=== PATIENT | male | born 1960 | race African-American/Black ===

== ENCOUNTER 2019-02-25 18:47 | Emergency (ER) | payer MEDICAID ==
[2019-02-25] MEDS ORDERED: LIDOCAINE 1%/EPINEPHRINE INJ 20 ML VIAL INJ ONE (19:17)
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
[2019-02-25 21:08] VITALS: BP 108/63
== END 2019-02-25 21:08 | disposition home or self-care (01) ==
LOC: ER 18:47
DX: S51.011A Laceration without foreign body of right elbow, initial encounter (principal); Y00.XXXA Assault by blunt object, initial encounter; Y93.01 Activity, walking, marching and hiking; Y92.410 Unspecified street and highway as the place of occurrence of the external cause; F17.200 Nicotine dependence, unspecified, uncomplicated; I10 Essential (primary) hypertension; Z23 Encounter for immunization
CPT/HCPCS: 99283; 73080; 12031; J3490

== ENCOUNTER 2019-02-26 00:46 | Emergency (ER) | payer MEDICAID ==
[2019-02-26 03:17] VITALS: BP 150/83
== END 2019-02-26 03:25 | disposition left against medical advice (07) ==
LOC: ER 00:46
DX: Z53.21 Procedure and treatment not carried out due to patient leaving prior to being seen by health care provider (principal)

== ENCOUNTER 2019-03-12 21:14 | Emergency (ER) | payer MEDICAID ==
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
--- NOTE | 2019-03-13 00:49 | RADIOLOGY REPORT (SQ) ---
EXAM DESCRIPTION: XR RIGHT ELBOW 3 VIEWS COMPLETED DATE/TME: 03/13/2019 00:00 CLINICAL HISTORY: 58 years, Male, injury 2 weeks ago continued pain COMPARISON: X-ray right elbow 02/25/2019 NUMBER OF VIEWS: TECHNIQUE: LIMITATIONS: None. FINDINGS: The prior study showed a possible hairline fracture involving the radial head. The current study shows some questionable bony sclerosis, in the vicinity of the possible hairline fracture, seen on the prior study. This could indicate fracture healing. There is apparent elevation of the anterior elbow fat pad, compatible with a joint effusion. This is a new finding, as compared with the prior study. Mineralization of bone appears normal. IMPRESSION: Possible healing fracture of the radial head. Elbow joint effusion. copyright 2010 [employer]- All Rights Reserved
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
[2019-03-13 04:56] VITALS: BP 135/82
== END 2019-03-13 06:20 | disposition home or self-care (01) ==
LOC: ER 21:14
DX: S51.011D Laceration without foreign body of right elbow, subsequent encounter (principal); S52.124D Nondisplaced fracture of head of right radius, subsequent encounter for closed fracture with routine healing; W22.8XXD Striking against or struck by other objects, subsequent encounter
CPT/HCPCS: 99282

== ENCOUNTER → 2019-03-16 | Outpatient (CLI) | payer MEDICAID ==
--- NOTE | 2019-03-16 12:21 | RADIOLOGY REPORT (SQ) ---
EXAM DESCRIPTION: CT RT UPPER EXTREMITY WITHOUT COMPLETED DATE/TIME: 03/16/2019 9:31 am REASON FOR STUDY: S52.124A NONDISP FX OF HEAD OF RIGHT RADIUS, INIT FOR CLOS FX S52.124A NONDISP FX OF HEAD OF RIGHT RADIUS, INIT FOR CLOS F COMPARISON: Right elbow films 03/13/2019, 02/25/2019 TECHNIQUE: Axial imaging performed through the right elbow with reformatted oblique coronal and obli que sagittal imaging windowed for bone and soft tissues. All CT scanners at this facility use dose modulation, iterative reconstruction, and/or weight based d osing when appropriate to reduce radiation dose to as low as reasonably achievable (ALARA). [facility]: Dose Right [facility]: CareDose [facility]: Dose Right [facility]: Teradose 4D [facility]: NOTIK RADIATION DOSE: CT Rad equipment meets quality standard of care and radiation dose reduction techniq ues were employed. CTDIvol: 4.6 mGy. DLP: 102 mGy-cm. mGy. LIMITATIONS: None. FINDINGS: A healing nondisplaced fracture of the right distal humerus medial epicondyle at the attac hment of the common flexor tendon is present. This is best shown on the sagittal reconstruction seri es 301, image 13/50, and coronal reconstruction 300 image 13/50. This is not visible on the oblique view from right elbow plain films 03/13/2019. Question healing nondisplaced hairline fracture through the coronoid process of the ulna, best shown on sagittal series 301, images 16 and 17/50. The radial head is grossly intact. No healing fracture is identified. There is a small persistent elbow joint effusion with elevation of the anterior fat pad. 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 No soft tissue gas or radiopaque foreign body. Overall normal bone density for age without lytic or blastic lesions IMPRESSION: Healing fracture, right distal humerus medial epicondyle TECHNICAL DOCUMENTATION: JOB ID: [id number] Quality ID # [id number]: Final reports with documentation of one or more dose reduction techniques (e.g., Au tomated exposure control, adjustment of the mA and/or kV according to patient size, use of iterative reconstruction technique) 2010 [employer]- All Rights Reserved Reading location - IP/workstation name: [email or web address]
== END ==
LOC: RAD 08:21
PROVIDERS: ATTEND Family Medicine
DX: S52.124A Nondisplaced fracture of head of right radius, initial encounter for closed fracture (principal); X58.XXXA Exposure to other specified factors, initial encounter; Y93.9 Activity, unspecified; Y92.9 Unspecified place or not applicable

== ENCOUNTER 2019-06-16 13:58 | Emergency (ER) | payer MEDICAID ==
--- NOTE | 2019-06-16 14:15 | ER Document Report ---
ED Medical Screen (RME) - General Stated Complaint: COUGH,CONGESTION,BODY ACHES Time Seen by Provider: 06/16/19 14:12 Primary Care Provider: ROSALIA STINSON DO [Primary Care Provider] - Follow up as needed Mode of Arrival: Ambulatory Information source: Patient Notes: 58-year-old male presents to ED for complaint of cough congestion shortness of breath and difficulty breathing. He states he has had a clot cough for 2 weeks and then developed this moist cough since yesterday. He is coughing up sputum there is yellow. Patient is alert oriented Patient states he does smoke about half pack a day. He does have moist cough. I have greeted and performed a rapid initial assessment of this patient. A comprehensive ED assessment and evaluation of the patient, analysis of test results and completion of medical decision making process will be conducted by an additional ED providers. TRAVEL OUTSIDE OF THE [place] IN LAST 30 DAYS: No - Related Data Allergies/Adverse Reactions: No Known Allergies Allergy (Verified 06/16/19 14:10) Past Medical History - Past Medical History Cardiac Medical History: Reports: Hx Hypertension - meds x 2 months Denies: Hx Atrial Fibrillation, Hx Congestive Heart Failure, Hx Coronary Artery Disease, Hx DVT, Hx Heart Attack, Hx Hypercholesterolemia, Hx Peripheral Vascular Disease, Hx Pulmonary Embolism, Hx Heart Murmur Neurological Medical History: Denies: Hx Cerebrovascular Accident, Hx Migraine, Hx Seizures, Hx Parkinson's Disease Renal/ Medical History: Denies: Hx Peritoneal Dialysis Musculoskeltal Medical History: Reports Hx Arthritis, Denies Hx Fibromyalgia, Denies Hx Multiple Sclerosis, Denies Hx Muscular Dystrophy Psychiatric Medical History: Reports: Hx Depression - no meds x 1 year (pt stopped), Hx Schizophrenia - no meds x 1 year (pt stopped) Denies: Hx Bipolar Disorder, Hx Dementia, Hx Post Traumatic Stress Disorder Traumatic Medical History: Denies: Hx Fractures Past Surgical History: Reports: Hx Orthopedic Surgery - L knee, R shoulder. Denies: Hx Appendectomy, Hx Bowel Surgery, Hx Cholecystectomy, Hx Coronary Artery Bypass Graft, Hx Gastric Bypass Surgery, Hx Herniorrhaphy, Hx Pacemaker, Hx Tonsillectomy - Immunizations Hx Diphtheria, Pertussis, Tetanus Vaccination: No Physical Exam - Vital signs Vitals: Temp Pulse Resp BP Pulse Ox 99.4 F 108 H 22 H 109/65 95 06/16/19 14:06 06/16/19 14:06 06/16/19 14:06 06/16/19 14:06 06/16/19 14:06 Course - Vital Signs Vital signs: Temp Pulse Resp BP Pulse Ox 99.4 F 108 H 22 H 109/65 95 06/16/19 14:06 06/16/19 14:06 06/16/19 14:06 06/16/19 14:06 06/16/19 14:06 Doctor's Discharge - Discharge Referrals: ROSALIA STINSON DO [Primary Care Provider] - Follow up as needed
[2019-06-16] MEDS: ALBUTEROL SULFATE 0.083% NEB 2.5 MG/3 ML AMPUL NEB SCH ×2 (14:19→14:52)
--- NOTE | 2019-06-16 14:48 | RADIOLOGY REPORT (SQ) ---
EXAM DESCRIPTION: CHEST 2 VIEWS COMPLETED DATE/TIME: 06/16/2019 2:40 pm REASON FOR STUDY: cough congestion COMPARISON: 10/16/2013. EXAM PARAMETERS: NUMBER OF VIEWS: two views TECHNIQUE: Digital Frontal and Lateral radiographic views of the chest acquired. RADIATION DOSE: NA LIMITATIONS: none FINDINGS: LUNGS AND PLEURA: No opacities, masses or pneumothorax. No pleural effusion. MEDIASTINUM AND HILAR STRUCTURES: No masses or contour abnormalities. HEART AND VASCULAR STRUCTURES: Heart normal size. No evidence for failure. BONES: No acute findings. HARDWARE: None in the chest. OTHER: No other significant finding. IMPRESSION: NO ACUTE RADIOGRAPHIC FINDING IN THE CHEST. TECHNICAL DOCUMENTATION: JOB ID: [id number] [employer]- All Rights Reserved Reading location - IP/workstation name: [email or web address]
[2019-06-16 15:06] LABS: HEMOGLOBIN 14.5 g/dL (13.5-17.0); MEAN CORPUSCULAR HEMOGLOBIN 30.7 pg (27.0-33.4); MEAN CORPUSCULAR HGB CONC 33.6 g/dL (32.0-36.0); MEAN CORPUSCULAR VOLUME 91 fl (80-97); PLATELET COUNT 285 10^3/uL (150-450); RED BLOOD COUNT 4.72 10^6/uL (4.35-5.55); RED CELL DISTRIBUTION WIDTH 14.2 % (11.5-14.0); WHITE BLOOD COUNT 20.6 10^3/uL (4.0-10.5)
[2019-06-16 15:24] LABS: ALBUMIN 4.1 g/dL (3.5-5.0); ALKALINE PHOSPHATASE 67 U/L (38-126); ANION GAP 10 (5-19); ASPARTATE AMINO TRANSFERASE 26 U/L (17-59); BILIRUBIN,TOTAL 0.7 mg/dL (0.2-1.3); BLOOD UREA NITROGEN 15 mg/dL (7-20); CALCIUM 9.7 mg/dL (8.4-10.2); CARBON DIOXIDE 25 mmol/L (22-30); CHLORIDE 104 mmol/L (98-107); GLUCOSE 118 mg/dL (75-110); TOTAL PROTEIN 7.1 g/dL (6.3-8.2)
[2019-06-16 15:29] LABS: ABSOLUTE LYMPHOCYTES# (MANUAL) 1.6 10^3/uL (0.5-4.7); ABSOLUTE MONOCYTES # (MANUAL) 1.6 10^3/uL (0.1-1.4); BAND NEUTROPHILS % (MANUAL) 3 % (3-5); BASOPHILS % (MANUAL) 0 % (0-2); EOSINOPHILS % (MANUAL) 0 % (0-6); LYMPHOCYTES % (MANUAL) 8 % (13-45); MONOCYTES % (MANUAL) 8 % (3-13); SEGMENTED NEUTROPHILS % (MAN) 81 % (42-78); SMUDGE CELLS PRESENT; TOTAL CELLS COUNTED 100
[2019-06-16 15:30] LABS: ANISOCYTOSIS SLIGHT; PLATELET COMMENT ADEQUATE
[2019-06-16] MEDS ORDERED: BENZONATATE 100 MG CAPSULE PO ONE (19:08)
[2019-06-16] MEDS ORDERED: ALBUTEROL SULFATE HFA (90 MCG/PUFF) 8 GM MDI (1 MDI/ER DISP) IH PRN (19:08)
--- NOTE | 2019-06-16 19:11 | ER Document Report ---
ED General - General Chief Complaint: Chest Congestion Stated Complaint: COUGH,CONGESTION,BODY ACHES Time Seen by Provider: 06/16/19 14:12 Primary Care Provider: FAVIAN JJ MD [Primary Care Provider] - Follow up as needed Mode of Arrival: Ambulatory Notes: Patient is a 58-year-old male who presents to the emergency department with a chief complaint of cough. Patient reports he has had a persistent dry cough for about 2 weeks. Patient reports yesterday he did produce a lot of thick yellow sputum. Patient states he has not taken any [id number] medications for the symptoms. Patient reports he does smoke a half a pack of cigarettes per day. Patient denies fever but does report chills. Patient reports a decreased appetite without nausea, vomiting or diarrhea. Patient reports a sore throat. Patient reports he has a lot of nasal congestion but does not have a runny nose. Patient reports his last bowel movement was yesterday did not show any signs of blood. TRAVEL OUTSIDE OF THE [place] IN LAST 30 DAYS: No - Related Data Allergies/Adverse Reactions: No Known Allergies Allergy (Verified 06/16/19 14:10) Past Medical History - General Information source: Patient - Social History Smoking Status: Current Every Day Smoker Chew tobacco use (# tins/day): No Frequency of alcohol use: None Drug Abuse: None Lives with: Family Family History: Reviewed & Not Pertinent Patient has suicidal ideation: No Patient has homicidal ideation: No - Past Medical History Cardiac Medical History: Reports: Hx Hypertension - meds x 2 months Denies: Hx Atrial Fibrillation, Hx Congestive Heart Failure, Hx Coronary Artery Disease, Hx DVT, Hx Heart Attack, Hx Hypercholesterolemia, Hx Peripheral Vascular Disease, Hx Pulmonary Embolism, Hx Heart Murmur Pulmonary Medical History: Reports: None EENT Medical History: Reports: None Neurological Medical History: Reports: None. Denies: Hx Cerebrovascular Accident, Hx Migraine, Hx Seizures, Hx Parkinson's Disease Endocrine Medical History: Reports: None Renal/ Medical History: Reports: None. Denies: Hx Peritoneal Dialysis Malignancy Medical History: Reports None GI Medical History: Reports: None Musculoskeletal Medical History: Reports Hx Arthritis, Denies Hx Fibromyalgia, Denies Hx Multiple Sclerosis, Denies Hx Muscular Dystrophy Skin Medical History: Reports None Psychiatric Medical History: Reports: Hx Depression - no meds x 1 year (pt stopped), Hx Schizophrenia - no meds x 1 year (pt stopped) Denies: Hx Bipolar Disorder, Hx Dementia, Hx Post Traumatic Stress Disorder Traumatic Medical History: Reports: None. Denies: Hx Fractures Infectious Medical History: Reports: None Past Surgical History: Reports: Hx Orthopedic Surgery - L knee, R shoulder. Denies: Hx Appendectomy, Hx Bowel Surgery, Hx Cholecystectomy, Hx Coronary Artery Bypass Graft, Hx Gastric Bypass Surgery, Hx Herniorrhaphy, Hx Pacemaker, Hx Tonsillectomy - Immunizations Hx Diphtheria, Pertussis, Tetanus Vaccination: No Hx Pneumococcal Vaccination: 08/29/10 Review of Systems - Review of Systems Constitutional: See HPI EENT: See HPI Cardiovascular: No symptoms reported Respiratory: See HPI Gastrointestinal: No symptoms reported Genitourinary: No symptoms reported Male Genitourinary: No symptoms reported Musculoskeletal: No symptoms reported Skin: No symptoms reported Hematologic/Lymphatic: No symptoms reported Neurological/Psychological: No symptoms reported Physical Exam - Vital signs Vitals: Temp Pulse Resp BP Pulse Ox 99.4 F 108 H 22 H 109/65 95 06/16/19 14:06 06/16/19 14:06 06/16/19 14:06 06/16/19 14:06 06/16/19 14:06 - Notes Notes: GENERAL: Well-appearing, well-nourished and in no acute distress. HEAD: Atraumatic, normocephalic. EYES: Pupils equal round and reactive to light, extraocular movements intact, sclera anicteric, conjunctiva are normal. ENT: TMs normal, nares patent, + edematous turbinates bilaterally, no rhinorrhea, oropharynx clear without exudates. Moist mucous membranes. NECK: Normal range of motion, supple without lymphadenopathy or JVD. LUNGS: Breath sounds clear to auscultation bilaterally and equal. No wheezes rales or rhonchi. Non productive continuous cough. HEART: Regular rate and rhythm without murmurs, rubs or gallops. ABDOMEN: Soft, nontender, normoactive bowel sounds. No guarding, no rebound. No masses appreciated. BACK: No cervical, thoracic, lumbar midline tenderness. No saddle anesthesia, normal distal neurovascular exam. GENITOURINARY: Deferred. EXTREMITIES: Normal range of motion, no pitting or edema. No clubbing or cyanosis. NEUROLOGICAL: Cranial nerves II through XII grossly intact. Normal speech, normal gait. PSYCH: Normal mood, normal affect. SKIN: Warm, Dry, normal turgor, no rashes or lesions noted. Course - Re-evaluation Re-evalutation: 06/16/19 Upon initial assessment the patient he had already received a breathing treatment. Patient does not have any wheezing or scattered rhonchi. Chest x- ray was negative for pneumonia. Patient potentially has a viral to bacterial bronchitis. I did discuss this case with my supervising physician Dr. Leiva who recommends a course of oral steroids, Z-Silvino, Tessalon Perles and a breathing treatment. Patient does have a leukocytosis with a white count of 20. We have drawn blood cultures. I did discuss strict return precautions with the patient and family member. Patient is in no acute distress and eating - Vital Signs Vital signs: Temp Pulse Resp BP Pulse Ox 99.4 F 81 16 108/64 95 06/16/19 19:19 06/16/19 19:19 06/16/19 19:19 06/16/19 19:19 06/16/19 19:19 - Laboratory Result Diagrams: 06/16/19 14:29 06/16/19 14:29 Laboratory results interpreted by me: 06/16/19 06/16/19 14:29 14:29 WBC 20.6 H RDW 14.2 H Seg Neuts % (Manual) 81 H Lymphocytes % (Manual) 8 L Abs Neuts (Manual) 17.3 H Abs Monocytes (Manual) 1.6 H Glucose 118 H 06/16/19 20:29 Patient does have leukocytosis of 20.6. Neutrophils 81 - Diagnostic Test Radiology reviewed: Reports reviewed Radiology results interpreted by me: 06/16/19 19:11 Laboratory 06/16/19 06/16/19 06/16/19 14:29 14:29 14:29 WBC 20.6 H RBC 4.72 Hgb 14.5 Hct 43.0 MCV 91 MCH 30.7 MCHC 33.6 RDW 14.2 H Plt Count 285 Lymph % (Auto) Not Reportable Collier % (Auto) Not Reportable Eos % (Auto) Not Reportable Baso % (Auto) Not Reportable Absolute Neuts (auto) Not Reportable Absolute Lymphs (auto) Not Reportable Absolute Monos (auto) Not Reportable Absolute Eos (auto) Not Reportable Absolute Basos (auto) Not Reportable Total Counted 100 Seg Neutrophils % Not Reportable Seg Neuts % (Manual) 81 H Band Neutrophils % 3 Lymphocytes % (Manual) 8 L Monocytes % (Manual) 8 Eosinophils % (Manual) 0 Basophils % (Manual) 0 Abs Neuts (Manual) 17.3 H Abs Lymphs (Manual) 1.6 Abs Monocytes (Manual) 1.6 H Absolute Eos (Manual) 0.0 Abs Basophils (Manual) 0.0 Smudge Cells PRESENT Platelet Comment ADEQUATE Anisocytosis SLIGHT Sodium 139.2 Potassium 4.0 Chloride 104 Carbon Dioxide 25 Anion Gap 10 BUN 15 Creatinine 1.23 Est GFR ( Amer) > 60 Est GFR (MDRD) Non-Af > 60 Glucose 118 H Calcium 9.7 Total Bilirubin 0.7 Direct Bilirubin 0.0 Neonat Total Bilirubin Not Reportable Neonat Direct Bilirubin Not Reportable Neonat Indirect Bili Not Reportable AST 26 ALT 17 Alkaline Phosphatase 67 NT-Pro-B Natriuret Pep 137 Total Protein 7.1 Albumin 4.1 Discharge - Discharge Clinical Impression: Tobacco abuse, Cough, Chills, Bronchitis Leukocytosis Qualifiers: Leukocytosis type: unspecified Qualified Code(s): D72.829 - Elevated white blood cell count, unspecified Condition: Stable Disposition: HOME, SELF-CARE Additional Instructions: BRONCHITIS: You have acute bronchitis. This disease is an infection or inflammation of the air passageways in your lungs. Symptoms usually include cough, low grade fever, shortness of breath, and wheezing. The cough usually persists for a couple of weeks. Most cases of bronchitis get better without antibiotics. We prescribe antibiotics when we believe bacteria are damaging your airways, or if there's high risk the bronchitis will worsen into pneumonia. Increase your fluid intake. A cool mist humidifier may make your lungs more comfortable. An expectorant (cough medicine that loosens phlegm) can help. If you smoke, STOP!!! Recovery from bronchitis can be somewhat slow, but you should see improvement within a day or two. Repeated episodes of bronchitis may result in lung damage -- for example, chronic bronchitis, recurrent pneumonias, or emphysema. Call the doctor if you develop increasing fever, shortness of breath, chest pain, bloody sputum, or otherwise worsen. If you have not improved at all after several days, contact the physician. BRONCHITIS WITH BRONCHOSPASM (WHEEZING): You have bronchitis with bronchospasm (wheezing). Sometimes people develop wheezing with a chest cold. This occurs either because of an underlying tendency toward asthma or because the virus itself irritates the bronchial tubes. This irritation causes cough, shortness of breath, and wheezing. Emergency treatment of bronchospasm may include adrenaline shots or bronchodilator aerosol. You may feel lightheaded and have a rapid pulse for an hour or two. Rest and get plenty of fluids. At home, we'll treat you with a bronchodilator inhaler. Corticosteroids may be required for some patients. Until you recover, avoid chemical fumes, dusts, pollens, and exercising in very cold or dry air. If you smoke, stop now! Most cases of bronchitis get better without antibiotics. We prescribe antibiotics when we believe bacteria are damaging your airways, or if there's high risk the bronchitis will worsen into pneumonia. Increase your fluid intake. A cool mist humidifier may make your lungs more comfortable. An expectorant (co ugh medicine that loosens phlegm) can help. Repeated episodes of bronchitis and bronchospasm may result in lung damage -- for example, chronic bronchitis, recurrent pneumonias, or emphysema. If you develop a fever, increased wheezing, chest pain, or severe shortness of breath, you should contact the doctor immediately. DECONGESTANT MEDICATION: A decongestant medicine has been prescribed. Often this medicine is combined in the same tablet with an antihistamine or expectorant. This type of medicine is helpful in treating a bad cold or sinus condition, as well as in treatment of the nasal congestion of hay fever. It is not of much benefit for lung infections. Decongestant medicines are related to stimulants. They can cause an increase in blood pressure and heart rate. Persons with heart disease and high blood pressure should not take decongestants without discussing this with the physician. If you develop palpitations, chest pain, headache, or tremors, stop the m edicine and consult your physician. COUGH-SUPPRESSANT & EXPECTORANT MEDICATION: You are to use a cough medication as needed for relief of symptoms. This medicine is a combination of an expectorant (to make the mucous thinner and more easily "coughed up") and a cough suppressant (to reduce the frequency of coughing). The cough-suppressant medicine is related to narcotics. You may experience mild nausea and sleepiness. Some patients who are very sensitive to narcotics may have stomach pain from this medicine. Taking the medicine with food reduces these side effects. Do not drive or work with machinery until you know how this medicine affects you. The expectorant should have no side effects. Iodine-containing expectorants (such as organidin) should not be taken by persons with active thyroid disease unless approved by your doctor. Call the doctor if you develop shortness of breath, hives, rash, itching, lightheadedness, or severe nausea and vomiting. INHALED BRONCHODILATORS: You have received a treatment of and/or prescription for an inhaled bronchodilator -- a medication which stimulates the airways in the lung to dilate. This improves the flow of air in asthma, bronchitis, and emphysema. These medicines have some similarity to adrenaline, and can cause similar side effects: shakiness, racing heart, and a sense of nervousness. These side effects decrease with time. Contact your doctor if these side effects are severe. Do not over-use the medicine. Too-frequent use of the inhaler may make it ineffective. Call your doctor if the inhaler is not controlling your symptoms at the prescribed doses. STEROID MEDICATION: You have been given an injection of or oral medicine of the cortisone/steroid class. This medication is used to control inflammation or allergy. Jeremy t is usually only given for a short period of time, until the acute process subsides. There are usually no side effects from short-term use of cortisone-like medications. Some persons feel an increased sense of well-being and are not sleepy at bedtime. Long-term use of cortisone medications is best avoided, unless required for a severe condition. If your condition does not remit, or relapses after the course of corticosteroid medication, you should consult your physician. ANTIBIOTIC THERAPY: You have been given an antibiotic prescription. It's important that you take all the medication, unless instructed otherwise by your physician. Failure to complete the entire course can result in relapse of your condition. Common side effects of antibiotics include nausea, intestinal cramping, or diarrhea. Women may develop vaginal yeast infections, and babies can get yeast (thrush) in the mouth following the use of antibiotics. Contact your physician if you develop significant side effects from this medication. Allergy to this antibiotic can result in hives, wheezing, faintness, or itching. If symptoms of allergy occur, stop the medication and call your doctor. AZITHROMYCIN: Azithromycin (Zithromax) is a broad spectrum antibiotic in the same class as erythromycin. It can treat a variety of bacterial infections, but is most frequently used for respiratory infections. Azithromycin is extremely long-lasting. It accumulates in body tissues and continues to kill bacteria for many days. In order to improve absorption, Azithromycin should be taken at least one hour before or two hours after a meal. It does not have the same strong tendency to upset the stomach as erythromycin and is usually very well tolerated. Patients who have had a rash or other true allergic reactions to erythromycin should not take this medication. Call if you develop gastrointestinal distress, severe diarrhea, rash, hives, itching, or shortness of breath. USE OF ACETAMINOPHEN (Tylenol): Acetaminophen may be taken for pain relief or fever control. It's much safer than aspirin, offering a wider range of "safe" dosages. It is safe during . Some brand names are Tylenol, Panadol, Datril, Anacin 3, Tempra, and Liquiprin. Acetaminophen can be repeated every four hours. The following are maximum recommended dosages: >89 pounds or adults 650 mg to 900 mg Acetaminophen can be repeated every four hours. Maximum dose not to exceed 4000 mg a day. SMOKING: If you smoke, you should stop smoking. The tar and chemicals in cigarette smoke are harmful. Smoking has been shown to cause: emphysema chronic bronchitis lung cancer mouth and throat cancer stomach and pancreas cancer premature aging defects In addition, smoking increases ear and lung infections in children of smokers. FOLLOW-UP CARE: If you have been referred to a physician for follow-up care, call the physicians office for an appointment as you were instructed or within the next two days. If you experience worsening or a significant change in your symptoms, notify the physician immediately or return to the Emergency Department at any time for re-evaluation. Prescriptions: Benzonatate [Tessalon Perles 100 mg Capsule] 100 mg PO Q8HP PRN #21 capsule PRN Reason: Prednisone [Deltasone 10 mg Tablet] 10 mg PO ASDIR PRN #21 tablet PRN Reason: Fluticasone Propionate [Flonase Nasal Johnson 50 Mcg/Johnson 16 gm] 1 spray NASL Q12 #1 inhaler Azithromycin [Zithromax 250 mg Tablet] 250 mg PO ASDIR #6 tablet Referrals: FAVIAN JJ MD [Primary Care Provider] - Follow up as needed
[2019-06-16 19:23] VITALS: BP 108/64
== END 2019-06-16 19:37 | disposition home or self-care (01) ==
LOC: ER 13:58
DX: J40 Bronchitis, not specified as acute or chronic (principal); R05 Cough; R68.83 Chills (without fever); D72.829 Elevated white blood cell count, unspecified; R09.89 Other specified symptoms and signs involving the circulatory and respiratory systems; M79.10 Myalgia, unspecified site; R63.0 Anorexia; J02.9 Acute pharyngitis, unspecified; R09.81 Nasal congestion; F17.200 Nicotine dependence, unspecified, uncomplicated; I10 Essential (primary) hypertension; Z79.899 Other long term (current) drug therapy
CPT/HCPCS: 94640 ×2; 99283; 36415; 87040; 85025; 80053; 83880; 71046; J3490 ×2

== ENCOUNTER 2019-08-25 18:09 | Emergency (ER) | payer MEDICAID ==
[2019-08-25] MEDS ORDERED: TETRACAINE HCL 0.5% OPH SOLN 4 ML OD ONE (18:46)
[2019-08-25] MEDS ORDERED: ERYTHROMYCIN 0.5% OPH OINT 1 GM UNIT DOSE OD ONE (19:27)
[2019-08-25] MEDS ORDERED: OXYCODONE-ACETAMINOPHEN 5-325 MG TABLET PO ONE (19:27)
--- NOTE | 2019-08-25 19:35 | ER Document Report ---
Entered by KELECHI MOONEY SCRIBE 08/25/19 1833 Acting as scribe for:MIRNA JORGE IV, MD ED Eye Complaint - General Chief Complaint: Eye Injury Stated Complaint: EYE INJURY Time Seen by Provider: 08/25/19 18:32 Primary Care Provider: FAVIAN JJ MD [Primary Care Provider] - Follow up as needed Mode of Arrival: Medic Information source: Patient Notes: This 58 year old male patient brought in by EMS presents to the ED today with complaints of chemical exposure to his right eye. Patient states that he was working on his car battery at home when he set the battery on the ground and battery acid splashed into his right eye. Patient reports instant severe right eye pain. Patient notes that he flushed his eye with water for 15 minutes with mild improvement in pain and vision. TRAVEL OUTSIDE OF THE [place] IN LAST 30 DAYS: No - Related Data Allergies/Adverse Reactions: No Known Allergies Allergy (Verified 06/16/19 14:10) Past Medical History - General Information source: Patient - Social History Smoking Status: Current Every Day Smoker Chew tobacco use (# tins/day): No Smoking Education Provided: No Frequency of alcohol use: Social Drug Abuse: None Family History: Reviewed & Not Pertinent Patient has suicidal ideation: No Patient has homicidal ideation: No - Past Medical History Cardiac Medical History: Reports: Hx Hypertension - meds x 2 months Musculoskeletal Medical History: Reports Hx Arthritis Psychiatric Medical History: Reports: Hx Depression - no meds x 1 year (pt stopped), Hx Schizophrenia - no meds x 1 year (pt stopped) Past Surgical History: Reports: Hx Orthopedic Surgery - L knee, R shoulder - Immunizations Hx Diphtheria, Pertussis, Tetanus Vaccination: No Hx Pneumococcal Vaccination: 08/29/10 Review of Systems - Review of Systems Constitutional: No symptoms reported EENT: See HPI, Eye pain Cardiovascular: No symptoms reported Respiratory: No symptoms reported Gastrointestinal: No symptoms reported Genitourinary: No symptoms reported Male Genitourinary: No symptoms reported Musculoskeletal: No symptoms reported Skin: No symptoms reported Hematologic/Lymphatic: No symptoms reported Neurological/Psychological: No symptoms reported -: Yes All other systems reviewed and negative Physical Exam - Vital signs Vitals: Temp Pulse Resp BP Pulse Ox 98.1 F 104 H 14 137/76 H 97 08/25/19 18:15 08/25/19 18:15 08/25/19 18:15 08/25/19 18:15 08/25/19 18:15 Interpretation: Normal - General General appearance: Alert - HEENT Head: Normocephalic, Atraumatic Eyes: Other - Litmus paper pH is 7 when appled to conjuctiva of R eye. No cell or flare on R eye. No hyphema. Negative Siedel's test. Pupils: PERRL Visual acuity- Right eye: 20/25 Visual acuity- Left eye: 20/50 Corrective lenses worn: No - Respiratory Respiratory status: No respiratory distress Chest status: Nontender Breath sounds: Normal Chest palpation: Normal - Cardiovascular Rhythm: Regular Heart sounds: Normal auscultation Murmur: No - Abdominal Inspection: Normal Distension: No distension Bowel sounds: Normal Tenderness: Nontender Organomegaly: No organomegaly - Back Back: Normal, Nontender - Extremities General upper extremity: Normal inspection General lower extremity: Normal inspection - Neurological Neuro grossly intact: Yes - Psychological Associated symptoms: Normal affect, Normal mood - Skin Skin Temperature: Warm Skin Moisture: Dry Skin Color: Normal Course - Re-evaluation Re-evalutation: 08/25/19 19:25 Results of eye examination, plan of care discussed with patient and patient's significant other. All questions were answered prior to discharge. Patient is instructed to use erythromycin eye ointment 3 times a day as directed and is to contact office [facility] in [place] on 08/27/2019 to schedule a follow-up appointment. Patient was instructed as to emergency signs and symptoms, reasons to return to the emergency department. Patient expressed understanding of reasons to return to the ED. When asked if everything about his ED visit was explained to him in a way in which he could understand patient responded in the affirmative. - Vital Signs Vital signs: Temp Pulse Resp BP Pulse Ox 98.1 F 104 H 14 137/76 H 97 08/25/19 18:15 08/25/19 18:15 08/25/19 18:15 08/25/19 18:15 08/25/19 18:15 - Transfer of Care Notes: 08/25/19 19:22 Case d/w Dr. Desouza, stable manager door to door lead generation for [facility]. He recommended that the patient be started on erythromycin ointment 3 times daily and follow-up with [facility] here in [place] within a week. Discharge - Discharge Clinical Impression: Chemical burn due to acid, conjunctiva, right Condition: Good Disposition: HOME, SELF-CARE Additional Instructions: Call [facility] IN [place] ON 08/27/2019 TO SCHEDULE A FOLLOW UP EYE APPOINTMENT TO BE SEEN WITHIN 2 DAYS. [phone] [address] [facility] [place] [address] Return to the Emergency Department without delay if any worse. Chemical in the Eye You have been treated for chemical exposure to the eye. Chemicals vary greatly in the amount of damage they can do to the eye. The most important part of treatment is to wash all traces of the chemical from the eye, which has been done as part of your emergency treatment. Depending on the type of chemical and amount of eye injury, the eye may be patched. The usual treatment is to place antibiotics in the eye and patch the eye for one or two days while it heals. If the eye is severely irritated, the pupil may be dilated to ease the pain. In addition, pain medication may be necessary. Re-examination is important if physical damage of the eye was found. Be sure to follow up as instructed. Do not drive or operate machinery until you have the full use of both your eyes. If the eye pain becomes severe, or if there is purulent drainage, decreased vision, or increasing swelling, call the doctor or return at once for re- evaluation. HOME CARE INSTRUCTIONS & INFORMATION: Thank you for choosing us for your medical needs. We hope you're satisfied with the care you received. After you leave, you must properly care for your problem and, at the same time, observe its progress. Any condition can change. Some illnesses can change rapidly over hours or days. If your condition worsens, return to the Emergency Department or see your physician promptly. ABOUT YOUR X-RAYS AND EKG'S: If you had an EKG or X-rays taken, they have been read by the Emergency Physician. The X-rays and EKG's will also be read by a Radiologist or [employer] within 24 hours. If discrepancies are noted, you will be notified by telephone. Please be certain the ED has a correct telephone number & address where you can be reached. Also, realize that some fractures or abnormalities do not show up on initial X-rays. If your symptoms continue, see your physician. ABOUT YOUR LABORATORY TEST: If you had laboratory tests, the results have been reviewed by the Emergency Physician. Some test results (for example cultures) may not be available for several days. You will be contacted if any test result shows you need additional treatment. Please be certain the ED has a correct telephone number and address where you can be reached. ABOUT YOUR MEDICATIONS: You will receive instructions on how to take your medicine on the prescription label you receive. Additional information may be provided by the Pharmacy. If you have questions afterwards, call the ED for clarification or further instructions. Some prescribed medications may cause drowsiness. Do not perform tasks such as driving a car or operating machinery without consulting your Pharmacist. If you feel you need a refill of pain medication, your condition will need re-evaluation. Please do not call for a refill of any medication. ABOUT YOUR SIGNATURE: Signature of this document acknowledges to followin. Understanding that you received emergency treatment and that you may be released before al medical problems are known or treated. Please be certain the ED has a correct phone number & address where you can be reached. 2. Acknowledgement that you will arrange for follow-up care as recommended. 3. Authorization for the Emergency Physician to provide information to your follow-up Physician in order to maximize your care. AT ANY TIME, IF YOUR SYMPTOMS CHANGE SIGNIFICANTLY OR WORSEN OR YOU DEVELOP NEW SYMPTOMS, RETURN TO THE EMERGENCY DEPARTMENT IMMEDIATELY FOR RE-EVALUATION. OUR GOAL IS TO PROVIDE EXCELLENT MEDICAL CARE! WE HOPE THAT WE HAVE MET YOUR EXPECTATIONS DURING YOUR EMERGENCY DEPARTMENT VISIT AND THAT YOU FEEL YOU HAVE RECEIVED EXCELLENT CARE! Prescriptions: Erythromycin Base [Erythromycin Oph 1 gm Oint Ud] 1 applic OD TID 7 Days #1 tube Oxycodone HCl/Acetaminophen [Percocet 5-325 mg Tablet] 1 - 2 tab PO Q4H PRN #15 tablet PRN Reason: Referrals: FAVIAN JJ MD [Primary Care Provider] - Follow up as needed I personally performed the services described in the documentation, reviewed and edited the documentation which was dictated to the scribe in my presence, and it accurately records my words and actions.
[2019-08-25 20:02] VITALS: BP 118/72
== END 2019-08-25 20:09 | disposition home or self-care (01) ==
LOC: ER 18:09
DX: T54.2X1A Toxic effect of corrosive acids and acid-like substances, accidental (unintentional), initial encounter (principal); H57.11 Ocular pain, right eye; Y92.9 Unspecified place or not applicable; F17.200 Nicotine dependence, unspecified, uncomplicated; I10 Essential (primary) hypertension; Z79.899 Other long term (current) drug therapy
CPT/HCPCS: 99283; J3490 ×2